=== PATIENT | male | born 1990 | race Caucasian/White ===

== ENCOUNTER 2024-06-19 19:05 | Emergency (ER) | payer BC, MEDICAID, SELFPAY ==
[2024-06-19 19:08] VITALS: BP 137/97; PULSE 72; RESP 15; TEMP 36.6; O2SAT 98
[2024-06-19 19:11] VITALS: BP 137/97; PULSE 72; RESP 15; TEMP 36.6; O2SAT 98
--- NOTE | 2024-06-19 19:40 | ED.GENADUL_ITS ---
Discharge Plan Disposition Patient Disposition: Home Discharge Details Clinical Impression: Corneal abrasion Primary Care Provider: Unknown,Unknown ED Provider: Mikki Coppola Home Meds and New Rx's Prescriptions: No Action No Known Home Meds Discharge Instructions Instructions: Corneal Abrasion ED Additional Instructions: Please use the eyedrops provided for corneal abrasion treatment, 2 drops in the left eye 4 times a day for the next 5 days. You may use cool compresses for comfort. Please do not wear contact lenses while you are being treated for the corneal abrasion. Return to emergency care if you develop new/worsening eye pain, vision changes, severe headaches, or if you are very worried and need to be rechecked again immediately. Follow-up with your eye doctor if you have any questions or would like to be rechecked on a nonemergent basis. Referrals: [facility] - [facility] General Date/Time Provider Initiated Documentation: 06/19/24 19:12 . [facility] Narrative: Ronen is a 33year old male who presents to the emergency department today for evaluation of left eye discomfort and redness. He reports that yesterday morning he was working on his computer when he noticed some discomfort to his left eye, looked in the mirror and noticed it was slightly reddened. No obvious inciting incident or aggravating/alleviating factors. This is accompanied by mild sensitivity to light. He describes the discomfort as a mild aching, rated 1 out of 10. Denies associated fever/chills, vision changes, significant headache, eyelid changes, drainage, trauma to the eye. No history of corneal abrasions or other eye pathology in the past. He does wear contacts; 140s, last changed 2 days ago. No significant past medical history or antibiotic allergies. Physical exam reassuring. Ronen is alert and oriented, no acute distress. PERRL, EOMs intact. Mild diffuse conjunctival erythema noted, no ciliary flushing. He did have good relief of discomfort with tetracaine eyedrops. Fluorescein stain revealed approximately 3 mm linear corneal abrasion at the 6 o'clock position. No drainage. No eyelid changes. Visual acuity reassuring. History and presentation consistent with uncomplicated corneal abrasion and contact lens wear. Will treat with ofloxacin eyedrops to cover Pseudomonas. No red flags concerning for serious etiology of pain such as acute angle-closure glaucoma, infectious keratitis, or scleritis requiring emergent ophthalmology referral for more in-depth evaluation. While in the emergency department, Ronen received first dose of ofloxacin drops, with follow-up take-home. Reviewed discharge instructions with patient, including symptomatic management, use of antibiotic drops, and red flags indicating need for return to emergency care Related Data Home Medications ?Medication ?Instructions ?Recorded ?Confirmed Unknown [No Known Home Meds] 06/19/24 06/19/24 Allergies Allergy/AdvReac Type Severity Reaction Status Date / Time No Known Allergies Allergy Unverified 06/19/24 19:10 General Stated Complaint: EyeProblem NAYELI: 4 Review of Systems Narrative: see HPI Exam Const General: cooperative, healthy appearing, comfortable, no acute distress, well developed and well groomed Nutritional Appearance: average body habitus Orientation: alert and oriented x3 HENMT Head: normal to inspection, normocephalic and atraumatic General nose exam: external nose normal Face and sinus: normal facial exam Eyes Periorbital: periorbital findings normal Eyelids: eyelids normal Conjunctivae: conjunctival abnormality left conjunctival injection; without discharge, without pterygia and without subconjunctival hemmorhages Cornea: fluorescein used (abrasion noted at 6 o clock position) Pupils: PERRL EOM: EOM intact bilaterally Eyes/upper lids images: 2 1. 3 mm linear abrasion noted Resp Effort & Inspection: normal respiratory effort and able to speak in complete sentences Course Vital Signs Vital signs: Vital Signs Temperature 36.6 C 06/19/24 19:08 Pulse 72 06/19/24 19:08 Respiratory Rate 15 06/19/24 19:08 Blood Pressure 137/97 H 06/19/24 19:08 Pulse Oximetry 98 06/19/24 19:08 Temperature 36.6 C 06/19/24 19:11 Pulse 72 06/19/24 19:11 Respiratory Rate 15 06/19/24 19:11 Blood Pressure 137/97 H 06/19/24 19:11 Blood Pressure Position Sitting 06/19/24 19:11 Pulse Oximetry 98 06/19/24 19:11 Oxygen Delivery Method Room Air 06/19/24 19:11 Oxygen Flow Rate 0 06/19/24 19:11 Medical Decision Making Quality:SDOH Health Related Social Needs: 2 No Data to Display PFSH All Active Problems (Updated 06/19/24 @ 19:43 by Mikki Dale Corneal abrasion (Acute) Social History Smoking risk assessment performed?: No
[2024-06-19] MEDS: Fluorescein STRIPS 100/BOX 1 MG (19:50)
[2024-06-19] MEDS: Tetracaine 0.5% 4 ML BTL (19:51)
[2024-06-19] MEDS: Ofloxacin 0.3% OTIC 5 ML BTL AS (20:14)
== END 2024-06-19 19:34 | disposition home or self-care (01) ==
LOC: ER 20:03
PROVIDERS: Emergency Provider Nurse Practitioner Family; PCP Student in an Organized Health Care Education/Training Program
DX: S05.02XA Injury of conjunctiva and corneal abrasion without foreign body, left eye, initial encounter (principal); X58.XXXA Exposure to other specified factors, initial encounter
CPT/HCPCS: 99283